=== PATIENT | male | born 1985 | race Caucasian/White ===

== ENCOUNTER 2018-02-28 09:03 | Emergency (ER) | payer OTHER ==
[~2018-02-28] VITALS: Ht 180.3 cm; Wt 133.0 kg
[~2018-02-28 09:03] MED LIST: VGR50 PO
[2018-02-28 09:14] VITALS: TEMP 36.7; Ht 180.3 cm; Wt 133.0 kg
[2018-02-28] MEDS ORDERED: WLLSR100 PO (09:33)
[2018-02-28] MEDS ORDERED: LXP/20 PO (09:33)
[2018-02-28] MEDS ORDERED: VNTHFA/IN INH (09:33)
[2018-02-28] MEDS ORDERED: MOME0.1S (09:33)
[2018-02-28] MEDS ORDERED: ALBUT/IPRATROP 3MG/0.5MG NEB 3 ML VIAL INH STA (09:46)
[2018-02-28 10:44] LABS: INFLUENZA B ANTIGEN Neg for Influ B (NEG)
--- NOTE | 2018-02-28 11:02 | DIAGNOSTIC IMAGING REPORT ---
CHEST 2 VIEWS ROUTINE CLINICAL HISTORY: Cough and wheezing. COMPARISON STUDY: Chest radiograph January 27, 2009. FINDINGS: Lung volumes are normal. No pneumothorax or pleural effusion is noted. There is no consolidation or evidence for pulmonary edema. Cardiomediastinal silhouette is normal. Appearance of the chest is unchanged. IMPRESSION: No acute cardiopulmonary findings. Electronically signed by: Iker Black M.D. 02/28/2018 11:01 AM Dictated Date/Time: 02/28/2018 11:00 AM
[2018-02-28] MEDS ORDERED: PRED50TA PO (11:28)
[2018-02-28 11:46] VITALS: BP 122/79; PULSE 88; O2SAT 95
--- NOTE | 2018-02-28 17:41 | EMERGENCY ROOM VISIT NOTE ---
History Report prepared by Alexandre: Hugo Meneses Under the Supervision of: Dr. Adriel Fletcher M.D. First contact with patient: 09:31 Chief Complaint: OTHER COMPLAINT Stated Complaint: PAIN AND LOSS OF HEARING IN LEFT EAR/BRONCHITIS History of Present Illness The patient is a 32 year old male who presents to the Emergency Room with complaints of constant left ear pain beginning shortly prior to arrival. He woke up with his symptoms today. He has not taken anything for his symptoms today. The patient denies any known foreign bodies or recent swimming. He has a history of ear infections. He believes he has a cold and bronchitis currently. The patient also complains of a worsening cough. His cough began three days ago. The patient denies known fevers, or vomiting. Source of History: patient Onset: shortly prior to arrival Position: ear (left) Timing: constant Associated Symptoms: + cough (worsening), No fevers, No vomiting Review of Systems See HPI for pertinent positives and negatives. A total of ten systems were reviewed and were otherwise negative. Past Medical & Surgical Medical Problems: (1) Abdominal pain (2) Asthma (3) Bronchitis (4) Pneumonia Family History No pertinent family history stated. Social History Smoking Status: Never Smoker Occupation Status: employed Current/Historical Medications Scheduled Albuterol Hfa (Ventolin Hfa), 2-4 PUFFS INH Q6H Bupropion HCl (Bupropion HCl Sr), 100 MG PO DAILY Escitalopram Oxalate (Escitalopram Oxalate), 20 MG PO DAILY Prednisone (Prednisone), 50 MG PO DAILY Miscellaneous Medications Mometasone Furoate (Mometasone Furoate) Allergies Coded Allergies: Penicillins (Unverified Allergy, Unknown, ., 02/28/18) Physical Exam Vital Signs Date Time Temp Pulse Resp B/P (MAP) Pulse Ox O2 Delivery O2 Flow Rate FiO2 02/28/18 11:46 88 20 122/79 95 02/28/18 11:04 84 18 105/77 92 Room Air 02/28/18 09:14 36.7 88 20 120/77 96 Room Air Physical Exam Physical Exam GENERAL: He is oriented to person, place, and time. He appears well-developed and well-nourished. He does not appear distressed. ____ HENT: Exam performed. Head: Normocephalic and atraumatic. Right Ear: External ear normal. No mastoid tenderness. TM guerrero and pearly. No erythema or bulging. Left Ear: External ear normal. No mastoid tenderness. TM guerrero and pearly. No erythema or bulging. Mouth/Throat: The oropharynx is clear and moist. No trismus in the jaw. No dental abscesses or uvula swelling. No oropharyngeal exudate or tonsillar abscesses. ____ EYES: Conjunctivae and EOM are normal. Pupils are equal, round, and reactive to light. Right eye exhibits no discharge. Left eye exhibits no discharge. No scleral icterus. ____ NECK: Normal range of motion. Neck supple. No JVD present. No spinous process tenderness present. No carotid bruit present. No rigidity. No tracheal deviation and normal range of motion present. No Brudzinski's sign and no Kernig 's sign noted. ____ CV: Normal rate, regular rhythm, normal heart sounds and intact distal pulses. There is no peripheral edema. Palpable radial pulses bue. ____ PULM/CHEST: Effort normal and breath sounds normal. No respiratory distress. No stridor. Scant expiratory wheezes bilaterally. Chest Wall: He exhibits no tenderness. ____ ABD: The abdomen is soft. Bowel sounds are normal. He has no distension. No mass is present. There is no tenderness. There is no rebound, no guarding, no Serrano's sign and no tenderness at McBurney's point. Rovsig negative MUSC/SKEL: Normal range of motion. There is no peripheral edema, tenderness or deformity. LYMPH: No cervical adenopathy. ____ NEURO: He is alert and oriented to person, place, and time. He has normal strength. No cranial nerve deficit or sensory deficit. Coordination and gait normal. GCS eye subscore is 4. GCS verbal subscore is 5. GCS motor subscore is 6. Cerebellar tests wnl. ____ SKIN: Skin is warm and dry. He is not diaphoretic. ____ PSYCH: He has a normal mood and affect. His behavior is normal. Judgment and thought content normal. ____ Medical Decision & Procedures ER Provider Diagnostic Interpretation: Radiology results as stated below per my review and radiologist interpretation: CHEST 2 VIEWS ROUTINE FINDINGS: Lung volumes are normal. No pneumothorax or pleural effusion is noted. There is no consolidation or evidence for pulmonary edema. Cardiomediastinal silhouette is normal. Appearance of the chest is unchanged. IMPRESSION: No acute cardiopulmonary findings. Electronically signed by: Iker Black M.D. 02/28/2018 11:01 AM Laboratory Results Test 02/28/18 09:56 Influenza Type A Antigen Neg for Influ A (NEG) Influenza Type B Antigen Neg for Influ B (NEG) Laboratory results reviewed by me Medications Administered Medications (Trade) Dose Ordered Sig/Golden Route Start Time Stop Time Status Last Admin Dose Admin Albuterol/ Ipratropium (Duoneb) 3 ml NOW STAT INH 02/28/18 09:46 02/28/18 09:48 DC 02/28/18 10:01 3 ML Prednisone (PredniSONE TAB) 60 mg NOW STAT PO 02/28/18 09:46 02/28/18 09:48 DC 02/28/18 10:01 60 MG ED Course 0942: The patient was evaluated in room C6. A complete history and physical exam was performed. 0946: Ordered Prednisone Tab 60 mg PO, DuoNeb 3 mL INH. 1100: I reassessed the patient. He feels better after receiving the breathing treatment, and is no longer wheezing. His influenza is negative. Chest x-ray negative. Discharge with prednisone. Plan of care discussed with patient and questions answered. The patient was given both verbal and printed discharge instructions. The patient verbalized understanding and ability to comply. The patient is to seek outpatient follow up as noted in the discharge instructions. The patient verbalized understanding and ability to comply. The patient is discharged in stable condition. The patient was instructed to return for worsening symptoms. Medical Decision He feels better after receiving the breathing treatment, and is no longer wheezing. His influenza is negative. Chest x-ray negative. Discharge with prednisone. Plan of care discussed with patient and questions answered. The patient was given both verbal and printed discharge instructions. The patient verbalized understanding and ability to comply. The patient is to seek outpatient follow up as noted in the discharge instructions. The patient verbalized understanding and ability to comply. The patient is discharged in stable condition. The patient was instructed to return for worsening symptoms. Medication Reconcilliation Current Medication List: was personally reviewed by me Blood Pressure Screening Patient's blood pressure: Normal blood pressure Blood pressure disposition: Did not require urgent referral Impression Primary Impression: URI (upper respiratory infection) Scribe Attestation The scribe's documentation has been prepared under my direction and personally reviewed by me in its entirety. I confirm that the note above accurately reflects all work, treatment, procedures, and medical decision making performed by me. The chart was completed utilizing [employer] Speech voice recognition software. Grammatical errors, random word insertions, pronoun errors, and incomplete sentences are an occasional consequence of this system due to software limitations, ambient noise, and hardware issues. Any formal questions or concerns about the content, text, or information contained within the body of this dictation should be directly addressed to the physician for clarification. Departure Information Dispostion Home / Self-Care Prescriptions Prednisone (Prednisone) 50 Mg Tab 50 MG PO DAILY for 4 Days, #4 TAB Prov: Adriel Fletcher M.D. 02/28/18 Referrals Zina Fan DO (PCP) Forms HOME CARE DOCUMENTATION FORM, IMPORTANT VISIT INFORMATION, WORK / SCHOOL INSTRUCTIONS Patient Instructions ED URI Viral, My [facility] Additional Instructions return to ED if you develop fever > 100.4, chest pain, cough up blood, wheezing with difficulty breathing or your symptoms worsen Problem Qualifiers Primary Impression: URI (upper respiratory infection) URI type: unspecified viral URI Qualified Codes: J06.9 - Acute upper respiratory infection, unspecified
== END 2018-02-28 11:45 | disposition home or self-care (01) ==
LOC: C.EDB 09:08 → C.EDC 11:45
DX: J06.9 Acute upper respiratory infection, unspecified (principal); J45.909 Unspecified asthma, uncomplicated